=== PATIENT | female | born 2000 | race Caucasian/White ===

== ENCOUNTER 2022-02-18 11:34 | Inpatient (IN) | payer OTHER, SELFPAY ==
--- NOTE | ~2022-02-18 | CT_ITS ---
EXAMINATION: CT ABDOMEN AND PELVIS WITHOUT CONTRAST CLINICAL INFORMATION: Right lower quadrant pain COMPARISON: None TECHNIQUE: Multidetector volumetric imaging was performed from the superior aspect of the liver through the pubic symphysis. Sagittal and coronal reformatted images were obtained on the technologist's workstation. This CT examination was performed using dose optimization techniques as appropriate, variously including the following: *Automated exposure control *Adjustment of mA and/or kV according to patient size (this includes techniques or standardized protocols for targeted exams where dose is matched to indication/reason for exam; i.e. extremities or head) *Use of iterative reconstruction technique DLP: 1224 mGy-cm FINDINGS: LUNG BASES: The visualized lung bases are unremarkable. LIVER, GALLBLADDER, AND BILIARY TREE: The liver is normal in size, shape, and attenuation. No focal hepatic lesion or biliary ductal dilatation is present. The gallbladder is unremarkable with no evidence of radiopaque gallstones, gallbladder wall thickening, or obvious pericholecystic inflammatory changes. PANCREAS: Unremarkable. SPLEEN: Unremarkable. ADRENAL GLANDS: Unremarkable. KIDNEYS AND URETERS: The kidneys are normal in size, shape, and attenuation. No hydronephrosis, hydroureter, or calculi seen. No perinephric stranding. BLADDER: Incompletely distended and grossly unremarkable. GASTROINTESTINAL TRACT: The appendix is dilated up to 1.1 cm in maximal diameter and there is mild periappendiceal inflammatory fat stranding highly suspicious for acute appendicitis. No extraluminal gas to suggest perforation. No periappendiceal abscess. Finding is seen best on coronal image 51. No dilated bowel loops or bowel wall thickening. No ascites or free air. ABDOMINAL WALL: No significant hernia is appreciated. LYMPH NODES: No lymphadenopathy by size criteria. VASCULAR: Normal caliber abdominal aorta. PELVIC VISCERA: IUD appears slightly eccentrically positioned relative to the expected course of the endometrial cavity. Correlate clinically. Gynecologic structures are otherwise grossly unremarkable. No free pelvic fluid. OSSEOUS STRUCTURES: No acute fracture or suspicious osseous lesion. CT/CT abdomen pelvis wo con IMPRESSION: 1. Dilated appendix with mild periappendiceal inflammatory fat stranding highly suspicious for acute appendicitis. No evidence of perforation or abscess. 2. Slightly eccentric positioning of the IUD relative to the expected course of the endometrial cavity. Correlate clinically with any pelvic pain. This critical result was discussed with Dr. Tyson at 10:17 PM on 02/18/2022 and it was ascertained that the content and urgency of the report was understood at the time of direct communication.
[2022-02-18 12:15] VITALS: BP 128/77; PULSE 92; RESP 19; TEMP 36.6; O2SAT 98; BMI 43.4
[2022-02-18 14:15] LABS: MANUAL DIFF FLAG NO
[2022-02-18 14:18] LABS: Appearance Urine CLEAR; Basophils Percent Auto 0.2 % (0-2); Color Urine YELLOW; Eosinophils Percent Auto 0.2 % (0-4); Glucose Urine UA NEG (NEG); Hematocrit 44.5 % (37.0-47.0); Imm Gran Abs Auto 0.07 X10*3/uL (0.00-0.03); Imm Gran Pct Auto 0.4 % (0.0-0.4); Leukocyte Esterase Urine NEG (NEG); Lymphocytes Absolute Auto 3.5 X10*3/uL (1.2-4.9); Lymphocytes Percent Auto 20.2 % (20-40); Mean Corpuscular HGB Conc 33.7 g/dl (31.0-35.0); Mean Corpuscular Hemoglobin 27.5 pg (27.0-33.0); Mean Corpuscular Volume 81.5 fL (80.0-98.0); Mean Platelet Volume 9.8 fL (9.4-12.3); Monocytes Absolute Auto 1.1 X10*3/uL (0.1-1.2); Monocytes Percent Auto 6.3 % (2-11); Neutrophils Absolute Auto 12.5 x10*3/uL (2.0-8.3); Neutrophils Percent Auto 72.7 % (45-73); Nitrite Urine NEG (NEG); Platelet Count 379 X10*3/uL (160-400); Red Blood Count 5.46 X10*6/uL (4.20-5.50); Red Cell Distribution Width 13.8 % (11.0-16.0); Specific Gravity - Urine >= 1.030 (1.005-1.025); UACC Culture Trigger NO; Urine Blood 2+ (NEG); Urine Ketones >=80 MG/DL (NEG); Urine Protein 1+ MG/DL (NEG-TRACE); White Blood Count 17.2 X10*3/uL (4.8-10.8)
[2022-02-18 14:24] LABS: Squamous Epithelial Cell Urine 2+ /LPF
[2022-02-18 14:26] LABS: Amorphous Sediment Urine 1+ /LPF; Bacteria Urine TRACE /LPF; Mucus Urine 1+ /LPF; RBC Urine 0-2 /HPF (0); WBC Urine 0-2 /HPF (0-4)
[2022-02-18 14:33] LABS: UPreg QC Valid YES; Urine Pregnancy NEGATIVE (NEGATIVE)
[2022-02-18 14:44] LABS: Alanine Aminotransferase 16 U/L (0-31); Albumin Level 4.8 g/dL (3.5-5.0); Alkaline Phosphatase 81 U/L (39-117); Anion Gap 15 (12-20); Aspartate Amino Transferase 14 U/L (5-31); Bilirubin Direct 0.3 mg/dL (0.0-0.5); Bilirubin Total 0.8 mg/dL (0.0-1.0); Blood Urea Nitrogen 8 mg/dL (9-16); Calcium 9.9 mg/dL (8.4-10.2); Carbon Dioxide 25 mmol/L (22-29); Chloride 101 mmol/L (96-108); Estimated Glomerular Filt Rate > 60; Glucose Random 96 mg/dL (60-115); Lipase 7 U/L (8-78); Sodium 137 mmol/L (135-145); Total Protein 8.6 g/dL (6.5-8.0)
[2022-02-18 20:00] VITALS: BP 122/76; PULSE 103; RESP 22; TEMP 37.2; O2SAT 97
--- NOTE | 2022-02-18 20:01 | PC.NURSE ---
crying with pain, tears. rlq pain. worse with po.
--- NOTE | 2022-02-18 20:13 | ED_ITS ---
HPI - Abdominal Pain General Chief Complaint: Abdominal Pain Stated Complaint: RUQ/RLQ Pain w/Nausea Time Seen by Provider: 02/18/22 20:07 Source: patient Mode of arrival: ambulatory Limitations: no limitations History of Present Illness HPI narrative: Patient comes to the emergency room complaining of intermittent abdominal pain for several months. However, for the last 2 days, patient has had constant right lower quadrant pain radiating towards the groin area. Patient denies dysuria or hematuria. Patient states that her last menstrual period finished yesterday. Patient has tried ibuprofen with minimal relief. Related Data Allergies Allergy/AdvReac Type Severity Reaction Status Date / Time No Known Allergies Allergy Verified 02/18/22 20:11 Review of Systems Review of Systems Constitutional : No Weight loss, No Fever, No Chills, No Night Sweats, No Fatigue, No Malaise ENT/Mouth : No Hearing loss, No Ear Pain, No Nasal Congestion, No Sinus Pain, No Hoarseness, No sore throat, No Rhinorrhea, No Swallowing Difficulty Eyes: No Eye Pain, No Swelling, No Redness, No Foreign Body, No Discharge, No Vision Changes Cardiovascular : No Chest Pain, No SOB, No Dyspnea on Exertion, No Orthopnea, No Edema, No Palpitations Respiratory : No Cough, No Sputum, No Wheezing, No Smoke Exposure, No Dyspnea Gastrointestinal : Complaining of nausea vomiting, No Diarrhea, No Constipation, complaining of intermittent right lower quadrant pain, constant now for 2 days, radiating towards the right groin area Genitourinary : no irregular bleeding, No Dysuria, No Urinary Frequency, No Hematuria, No Urinary Incontinence, No Urgency, No Flank Pain, No Urinary Flow Changes, No Hesitancy Musculoskeletal : No joint pain, No Myalgias, No Joint Swelling Skin : No Skin Lesions, No rash Neuro : No Weakness, No Numbness, No Paresthesias, No Loss of Consciousness, No Dizziness, No Headache Psych : No Anxiety/Panic, No Depression, No SI/HI/AH/VH, No Social Issues, Heme/Lymph: No Bruising, No Bleeding,No Lymphadenopathy Endocrine : No Polyuria, No Polydipsia, No Temperature Intolerance PMF Social History Social History Advance Directives: No Advance Directives Information Provided: No Physical Exam ED Vital Signs: Vital Signs - 24 hr 02/18/22 12:15 02/18/22 20:00 Temperature 98 F 99.0 F Pulse Rate 92 103 H Respiratory Rate 19 22 H Blood Pressure 128/77 122/76 Pulse Oximetry 98 97 Oxygen Delivery Method Room Air Room Air BMI result Body Mass Index 43.4 Const Other: Appearance: Alert. Oriented X3. No acute distress. well-appearing Eyes: Pupils equal, round and reactive to light. ENT: Pharynx normal. Neck: Normal inspection. Neck supple. No lymph nodes noted. No crepitus CVS: Normal heart rate and rhythm. Pulses normal. Normal S1 and S2 Respiratory: No respiratory distress. Breath sounds normal. No Wheezing. No rales Abdomen: Soft , moderate tenderness to palpation over the right lower quadrant, no guarding, no rebound, No rigidity. No distention. Skin: Skin warm and dry. Normal skin color. Normal skin turgor. Extremities: No lower extremity edema. No Lacerations. No Rash Neuro: Oriented X 3. No motor deficit. No sensory deficit. Moving all ex tremities. No slurred speech. CN 2 through 12 grossly intact Psych: calm, cooperative, normal affect Course Course Course Narrative: patient states that she has to her knowledge she does not have any ovarian cysts, has never passed kidney stones, Has never had right lower quadrant pain, states she has never had abdominal surgeries /appendectomy patient has an elevated white blood cell count, the rest of her labs are unremarkable. CT scan of the abdomen is pending. Patient is getting IV fluids, Zofran and IV Toradol sign out given to Dr. Tyson [facility] - Abdominal Pain Lab Data Result diagrams: 02/18/22 14:06 02/18/22 14:06 Labs: Lab Results 02/18/22 02/18/22 02/18/22 Range/Units 14:06 14:06 14:06 WBC 17.2 H (4.8-10.8) X10*3/uL RBC 5.46 (4.20-5.50) X10*6/uL Hgb 15.0 (12.0-16.0) g/dl Hct 44.5 (37.0-47.0) % MCV 81.5 (80.0-98.0) fL MCH 27.5 (27.0-33.0) pg MCHC 33.7 (31.0-35.0) g/dl RDW 13.8 (11.0-16.0) % Plt Count 379 (160-400) X10*3/uL MPV 9.8 (9.4-12.3) fL Immature Gran % (Auto) 0.4 (0.0-0.4) % Neut % (Auto) 72.7 (45-73) % Lymph % (Auto) 20.2 (20-40) % [place] % (Auto) 6.3 (2-11) % Eos % (Auto) 0.2 (0-4) % Baso % (Auto) 0.2 (0-2) % Lymph # (Auto) 3.5 (1.2-4.9) X10*3/uL [place] # (Auto) 1.1 (0.1-1.2) X10*3/uL Eos # (Auto) 0.0 (0.0-0.4) X10*3/uL Baso # (Auto) 0.0 (0.0-0.2) X10*3/uL Abs Immat Gran (auto) 0.07 H (0.00-0.03) X10*3/uL Absolute Neuts (auto) 12.5 H (2.0-8.3) x10*3/uL Absolute Nucleated RBC 0.000 (0.0-0.012) X10*3/uL Nucleated RBC % (auto) 0.0 (0.0-0.2) /100WBC Sodium 137 (135-145) mmol/L Potassium 4.0 (3.3-5.1) mmol/L Chloride 101 (96-108) mmol/L Carbon Dioxide 25 (22-29) mmol/L Anion Gap 15 (12-20) BUN 8 L (9-16) mg/dL Creatinine 0.72 (0.5-1.4) mg/dL Estim Creat Clear Calc 151.0 Estimated GFR > 60 Random Glucose 96 (60-115) mg/dL Calcium 9.9 (8.4-10.2) mg/dL Total Bilirubin 0.8 (0.0-1.0) mg/dL Direct Bilirubin 0.3 (0.0-0.5) mg/dL AST 14 (5-31) U/L ALT 16 (0-31) U/L Alkaline Phosphatase 81 (39-117) U/L Total Protein 8.6 H (6.5-8.0) g/dL Albumin 4.8 (3.5-5.0) g/dL Lipase 7 L (8-78) U/L Urine Color YELLOW Urine Appearance CLEAR Urine pH 6.0 (5.0-8.0) Ur Specific [place] >= 1.030 H (1.005-1.025) Urine Protein 1+ H (NEG-TRACE) MG/DL Urine Glucose (UA) NEG (NEG) MG/DL Urine Ketones >=80 (NEG) MG/DL Urine Blood 2+ H (NEG) Urine Nitrite NEG (NEG) Ur Leukocyte Esterase NEG (NEG) Urine RBC 0-2 (0) /HPF Urine WBC 0-2 (0-4) /HPF Ur Squamous Epith Cells 2+ /LPF Amorphous Sediment 1+ /LPF Urine Bacteria TRACE /LPF Urine Mucus 1+ /LPF Urine Test (NEGATIVE) 02/18/22 Range/Units 14:06 WBC (4.8-10.8) X10*3/uL RBC (4.20-5.50) X10*6/uL Hgb (12.0-16.0) g/dl Hct (37.0-47.0) % MCV (80.0-98.0) fL MCH (27.0-33.0) pg MCHC (31.0-35.0) g/dl RDW (11.0-16.0) % Plt Count (160-400) X10*3/uL MPV (9.4-12.3) fL Immature Gran % (Auto) (0.0-0.4) % Neut % (Auto) (45-73) % Lymph % (Auto) (20-40) % [place] % (Auto) (2-11) % Eos % (Auto) (0-4) % Baso % (Auto) (0-2) % Lymph # (Auto) (1.2-4.9) X10*3/uL [place] # (Auto) (0.1-1.2) X10*3/uL Eos # (Auto) (0.0-0.4) X10*3/uL Baso # (Auto) (0.0-0.2) X10*3/uL Abs Immat Gran (auto) (0.00-0.03) X10*3/uL Absolute Neuts (auto) (2.0-8.3) x10*3/uL Absolute Nucleated RBC (0.0-0.012) X10*3/uL Nucleated RBC % (auto) (0.0-0.2) /100WBC Sodium (135-145) mmol/L Potassium (3.3-5.1) mmol/L Chloride (96-108) mmol/L Carbon Dioxide (22-29) mmol/L Anion Gap (12-20) BUN (9-16) mg/dL Creatinine (0.5-1.4) mg/dL Estim Creat Clear Calc Estimated GFR Random Glucose (60-115) mg/dL Calcium (8.4-10.2) mg/dL Total Bilirubin (0.0-1.0) mg/dL Direct Bilirubin (0.0-0.5) mg/dL AST (5-31) U/L ALT (0-31) U/L Alkaline Phosphatase (39-117) U/L Total Protein (6.5-8.0) g/dL Albumin (3.5-5.0) g/dL Lipase (8-78) U/L Urine Color Urine Appearance Urine pH (5.0-8.0) Ur Specific [place] (1.005-1.025) Urine Protein (NEG-TRACE) MG/DL Urine Glucose (UA) (NEG) MG/DL Urine Ketones (NEG) MG/DL Urine Blood (NEG) Urine Nitrite (NEG) Ur Leukocyte Esterase (NEG) Urine RBC (0) /HPF Urine WBC (0-4) /HPF Ur Squamous Epith Cells /LPF Amorphous Sediment /LPF Urine Bacteria /LPF Urine Mucus /LPF Urine Test NEGATIVE (NEGATIVE) Discharge Plan Discharge Clinical Impression: Abdominal pain Patient Disposition: Still a Patient
[2022-02-18] MEDS: Ketorolac Tromethamine 30 MG/ML VIAL IVPUSH (20:44)
[2022-02-18] MEDS: ondansetron HCL 4 MG/2 ML VIAL IVPUSH (20:44)
[2022-02-18] MEDS: 0.9 % Sodium Chloride 1,000 ML 999 ML IVCONT (20:45)
[2022-02-18 22:00] VITALS: BP 115/68; PULSE 97; RESP 16; TEMP 36.7; O2SAT 98
[2022-02-18 22:56] LABS: COVID-19 Test Negative (Negative)
[2022-02-19] VITALS (18 sets, daily range): BP systolic 91–122; BP diastolic 50–76; PULSE 69–92; RESP 16–34; TEMP 36.1–36.9; O2SAT 93–99
[2022-02-19] MEDS: Piperacillin Sodium/Tazobactam 3.375 GM in 0.9 % Sodium Chloride 50 ML IV ×2 (01:36→08:26)
[2022-02-19] MEDS: Dextrose 5 % and Lactated Ring 1,000 ML 125 ML IVCONT ×4 (02:33→20:53)
[2022-02-19 04:14] LABS: MANUAL DIFF FLAG NO
[2022-02-19 04:15] LABS: Basophils Percent Auto 0.2 % (0-2); Eosinophils Absolute Auto 0.1 X10*3/uL (0.0-0.4); Eosinophils Percent Auto 1.1 % (0-4); Hemoglobin 12.6 g/dl (12.0-16.0); Imm Gran Abs Auto 0.05 X10*3/uL (0.00-0.03); Imm Gran Pct Auto 0.4 % (0.0-0.4); Lymphocytes Absolute Auto 4.3 X10*3/uL (1.2-4.9); Lymphocytes Percent Auto 33.2 % (20-40); Mean Corpuscular HGB Conc 33.2 g/dl (31.0-35.0); Mean Corpuscular Hemoglobin 26.8 pg (27.0-33.0); Mean Corpuscular Volume 80.9 fL (80.0-98.0); Mean Platelet Volume 9.8 fL (9.4-12.3); Monocytes Percent Auto 7.7 % (2-11); Neutrophils Absolute Auto 7.5 x10*3/uL (2.0-8.3); Neutrophils Percent Auto 57.4 % (45-73); Platelet Count 302 X10*3/uL (160-400); Red Cell Distribution Width 13.6 % (11.0-16.0); White Blood Count 13.1 X10*3/uL (4.8-10.8)
--- NOTE | 2022-02-19 07:32 | P.HPGS_ITS ---
History of Present Illness History of Present Illness Date of Service: 02/19/22 Chief complaint: Acute appendicitis Narrative: Melia Guy is a 21 year old female presenting with complaints of abdominal pain in the right upper quadrant. The pain has been progressive over the past 3 days and it became more severe during the night. She subsequently presented to the emergency department for further evaluation. She initially thought it was related to her IUD which was previously evaluated by her senior advisory. On examination she was noted to be tender in the right lower quadrant and laboratories revealed an elevated WBC. CT abdomen and pelvis revealed a thickened appendix with surrounding inflammation suggestive of appendicitis. There was no evidence of perforation. She was admitted to the surgical service for further management. This morning the patient feels improved with decreased abdominal pain after receiving IV Tylenol. Review of Systems Review of Systems: Yes all other systems are reviewed and are negative Constitutional: Constitutional: Reports chills, Reports fever(s), Denies headache(s), Reports poor appetite and Denies weakness ENT: Denies headache(s) Cardiovascular: Cardiovascular: Denies chest pain, Denies irregular heart rhythm, Denies palpitations and Denies dyspnea Respiratory: Respiratory: Denies cough, Denies excessive phlegm production and Denies dyspnea Gastrointestinal: Gastrointestinal: Reports abdominal pain, Denies bloating, Denies change in bowel habits, Denies constipation, Reports heartburn, Denies diarrhea, Reports nausea and Reports vomiting Genitourinary: Genitourinary: Denies urinary frequency Musculoskeletal: Musculoskeletal: Denies back pain, Denies muscle weakness and Denies numbness Integumentary/Breasts: Skin/Breast: Denies changing lesions and Denies unusual bruising Neurologic: Denies headache(s), Denies numbness, Denies paresthesias and Denies weakness Psychiatric: Psychiatric: Denies anxiety and Denies depression Endocrine: Endocrine: Denies palpitations Hematologic/Lymphatic: Hematologic/Lymphatic: Denies lymphadenopathy [facility] Social History Social History Advance Directives: No Advance Directives Information Provided: No Meds Allergies Allergy/AdvReac Type Severity Reaction Status Date / Time No Known Allergies Allergy Verified 02/18/22 20:11 Active Medications: Current Medications Hydromorphone HCl (Hydromorphone Hcl 1 Mg/Ml Syringe) 0.5 mg IVPUSH Q4H PRN; Protocol PRN Reason: Pain, Severe (Pain Scale 7-10) Dextrose/Lactated Ringer's (D5lr) 1,000 mls @ 125 mls/hr IVCONT .Q8H [facility] Last Admin: 02/19/22 02:33 Dose: 125 mls/hr Piperacillin Sod/Tazobactam (Sod 3.375 gm/ Sodium Chloride) 50 mls @ 100 mls/hr IV Q6H [facility] Acetaminophen (Ofirmev) 1,000 mg in 100 mls @ 400 mls/hr IV Q6H [facility] Ondansetron HCl (Ondansetron Hcl 4 Mg/2 Ml Vial) 4 mg IVPUSH QID PRN PRN Reason: Nausea Oxycodone HCl (Oxycodone Hcl Immed Release 5 Mg Tablet) 5 mg PO Q6H PRN PRN Reason: Pain, Severe (Pain Scale 7-10) Pharmacy Consult (Consult Rx Perform Med Rec) 1 each MISCELLANE ONCE PRN PRN Reason: Consult order Sodium Chloride (0.9 % Sodium Chloride Flush 3 Ml Syringe) 3 ml IVFLUSH QSHIFT [facility] Last Admin: 02/19/22 01:37 Dose: 3 ml Zolpidem Tartrate (Zolpidem Tartrate 5 Mg Tablet) 5 mg PO BEDTIME PRN PRN Reason: Insomnia Physical Exam Vital Signs: Vital Signs: Last Vital Signs Temp 98.1 F 02/18/22 22:00 Pulse 92 02/19/22 06:45 Resp 16 02/19/22 06:45 BP 109/66 02/19/22 06:45 Pulse Ox 98 02/19/22 06:45 O2 Del Method 02/19/22 06:45 BMI result Body Mass Index 43.4 Const: General: cooperative and no acute distress Nutritional Appearance: well nourished Orientation/consciousness: patient oriented x3 Limitations: no limitations HEENT: Head: Yes normocephalic and Yes atraumatic Ears: hearing grossly normal bilaterally Resp: Effort & Inspection: normal respiratory effort, no audible wheezes, no cough and no respiratory distress Cardio: Jugular venous distension: no JVD GI: Inspection: Yes normal to inspection Palpation (GI): Soft to palpation, Tenderness to palpation present (GI) in the RLQ and at McBurney's point, no guarding and not rigid Percussion: Yes normal to percussion Auscultation: normal bowel sounds Rectal Exam - Female: deferred Skin: Other: Warm, dry, no rash Neuro: General: patient oriented x3 Extrem: General: Yes no clubbing, cyanosis or edema Results Results Labs: Short CBC 02/18/22 02/19/22 Range/Units 14:06 04:07 WBC 17.2 H 13.1 H (4.8-10.8) X10*3/uL Hgb 15.0 12.6 (12.0-16.0) g/dl Hct 44.5 38.0 (37.0-47.0) % Plt Count 379 302 (160-400) X10*3/uL BMP 02/18/22 14:06 Sodium 137 Potassium 4.0 Chloride 101 Carbon Dioxide 25 BUN 8 L Creatinine 0.72 Calcium 9.9 Liver Function 02/18/22 Range/Units 14:06 Total Bilirubin 0.8 (0.0-1.0) mg/dL Direct Bilirubin 0.3 (0.0-0.5) mg/dL AST 14 (5-31) U/L ALT 16 (0-31) U/L Alkaline Phosphatase 81 (39-117) U/L Albumin 4.8 (3.5-5.0) g/dL Urine 02/18/22 02/18/22 Range/Units 14:06 14:06 Urine Color YELLOW Urine Appearance CLEAR Urine pH 6.0 (5.0-8.0) Ur Specific [place] >= 1.030 H (1.005-1.025) Urine Protein 1+ H (NEG-TRACE) MG/DL Urine Glucose (UA) NEG (NEG) MG/DL Urine Test NEGATIVE (NEGATIVE) Assessment and Plan (1) Acute appendicitis: Status: Acute Plan 21-year-old female patient presenting with complaints of abdominal pain in the right lower quadrant for approximately 3 days. The pain is becoming more severe and is associated with nausea and vomiting. On presentation to the emergency department she was noted to be tender in the right lower quadrant. WBC was elevated at 17. CT abdomen was consistent with acute appendicitis. This morning her pain is improved after IV Tylenol and her WBCs at 13. She was given the option of continued IV antibiotics versus laparoscopic/open appendectomy. After discussion of the procedure, risks, and alternatives, she consents to a laparoscopic or possible open appendectomy. She is been added onto the operative schedule for today. Quality Stroke Does the patient have a stroke diagnosis?: No VTE Prior VTE?: No VTE Risk Level:: Surgical - moderate VTE Device Contraindication: N/A - Device Ordered VTE Drug Contraindication: Treatment Not Indicated Procedures Date of Service Date of Service: 02/19/22
--- NOTE | 2022-02-19 08:06 | PHA.MEDREC ---
Pharmacy Consult ? Medication Reconciliation Pharmacy has completed the medication reconciliation. Patient report no medications at home. She reports that she does have an IUD. Hermila Wilkes, PharmD
[2022-02-19] MEDS: 0.9 % Sodium Chloride Flush 3 ML SYRINGE IVFLUSH (08:28)
--- NOTE | 2022-02-19 09:36 | HO.ANESPROP2 ---
[facility] Active Problems Active Problems: All Active Problems (Updated 02/18/22 @ 22:32 by Alexandra Tyson MD) Abdominal pain (Acute) Acute appendicitis (Acute) Past Medical History Functional capacity: independent ambulation Patient : No Family History Family history of problems with anesthesia: No Surgical History History of Problems with Anesthesia: No Social History Social History Patient Tobacco Use Status: Never used Tobacco Second Hand Smoke Exposure: No Meds Allergies Allergy/AdvReac Type Severity Reaction Status Date / Time No Known Allergies Allergy Verified 02/18/22 20:11 Active Medications: Current Medications Hydromorphone HCl (Hydromorphone Hcl 1 Mg/Ml Syringe) 0.5 mg IVPUSH Q4H PRN; Protocol PRN Reason: Pain, Severe (Pain Scale 7-10) Dextrose/Lactated Ringer's (D5lr) 1,000 mls @ 125 mls/hr IVCONT .Q8H [facility] Last Admin: 02/19/22 08:27 Dose: 125 mls/hr Piperacillin Sod/Tazobactam (Sod 3.375 gm/ Sodium Chloride) 50 mls @ 100 mls/hr IV Q6H [facility] Last Admin: 02/19/22 08:26 Dose: 100 mls/hr Acetaminophen (Ofirmev) 1,000 mg in 100 mls @ 400 mls/hr IV Q6H [facility] Last Admin: 02/19/22 09:05 Dose: 400 mls/hr Ondansetron HCl (Ondansetron Hcl 4 Mg/2 Ml Vial) 4 mg IVPUSH QID PRN PRN Reason: Nausea Oxycodone HCl (Oxycodone Hcl Immed Release 5 Mg Tablet) 5 mg PO Q6H PRN PRN Reason: Pain, Severe (Pain Scale 7-10) Pharmacy Consult (Consult Rx Perform Med Rec) 1 each MISCELLANE ONCE PRN PRN Reason: Consult order Sodium Chloride (0.9 % Sodium Chloride Flush 3 Ml Syringe) 3 ml IVFLUSH QSHIFT [facility] Last Admin: 02/19/22 08:28 Dose: 3 ml Zolpidem Tartrate (Zolpidem Tartrate 5 Mg Tablet) 5 mg PO BEDTIME PRN PRN Reason: Insomnia Home Medications Medication Instructions Recorded Confirmed Last Taken Type No Known Home Meds 02/19/22 02/19/22 Unknown History Exam Exam Date and Time: February 19, 2022 0936 Height,Weight and Vital Signs: Height 5 ft 4 in Weight 114.759 kg Last Vital Signs Temp 97.4 F 02/19/22 09:16 Pulse 85 02/19/22 09:16 Resp 16 02/19/22 09:16 BP 110/74 02/19/22 09:16 Pulse Ox 98 02/19/22 09:16 O2 Del Method 02/19/22 09:16 Pertinent Lab Results Pertinent Lab Results: Laboratory Tests 02/18/22 02/18/22 02/18/22 14:06 14:06 14:06 WBC 17.2 H RBC 5.46 Hgb 15.0 Hct 44.5 MCV 81.5 MCH 27.5 MCHC 33.7 RDW 13.8 Plt Count 379 MPV 9.8 Immature Gran % (Auto) 0.4 Neut % (Auto) 72.7 Lymph % (Auto) 20.2 [place] % (Auto) 6.3 Eos % (Auto) 0.2 Baso % (Auto) 0.2 Lymph # (Auto) 3.5 [place] # (Auto) 1.1 Eos # (Auto) 0.0 Baso # (Auto) 0.0 Abs Immat Gran (auto) 0.07 H Absolute Neuts (auto) 12.5 H Absolute Nucleated RBC 0.000 Nucleated RBC % (auto) 0.0 Sodium 137 Potassium 4.0 Chloride 101 Carbon Dioxide 25 Anion Gap 15 BUN 8 L Creatinine 0.72 Estim Creat Clear Calc 151.0 Estimated GFR > 60 Random Glucose 96 Calcium 9.9 Total Bilirubin 0.8 Direct Bilirubin 0.3 AST 14 ALT 16 Alkaline Phosphatase 81 Total Protein 8.6 H Albumin 4.8 Lipase 7 L Urine Color YELLOW Urine Appearance CLEAR Urine pH 6.0 Ur Specific [place] >= 1.030 H Urine Protein 1+ H Urine Glucose (UA) NEG Urine Ketones >=80 Urine Blood 2+ H Urine Nitrite NEG Ur Leukocyte Esterase NEG Urine RBC 0-2 Urine WBC 0-2 Ur Squamous Epith Cells 2+ Amorphous Sediment 1+ Urine Bacteria TRACE Urine Mucus 1+ Urine Test COVID-19 ([facility]) COVID-19 Clin Com 02/18/22 02/18/22 02/19/22 14:06 22:29 04:07 WBC 13.1 H RBC 4.70 Hgb 12.6 Hct 38.0 MCV 80.9 MCH 26.8 L MCHC 33.2 RDW 13.6 Plt Count 302 MPV 9.8 Immature Gran % (Auto) 0.4 Neut % (Auto) 57.4 Lymph % (Auto) 33.2 [place] % (Auto) 7.7 Eos % (Auto) 1.1 Baso % (Auto) 0.2 Lymph # (Auto) 4.3 [place] # (Auto) 1.0 Eos # (Auto) 0.1 Baso # (Auto) 0.0 Abs Immat Gran (auto) 0.05 H Absolute Neuts (auto) 7.5 Absolute Nucleated RBC 0.000 Nucleated RBC % (auto) 0.0 Sodium Potassium Chloride Carbon Dioxide Anion Gap BUN Creatinine Estim Creat Clear Calc Estimated GFR Random Glucose Calcium Total Bilirubin Direct Bilirubin AST ALT Alkaline Phosphatase Total Protein Albumin Lipase Urine Color Urine Appearance Urine pH Ur Specific [place] Urine Protein Urine Glucose (UA) Urine Ketones Urine Blood Urine Nitrite Ur Leukocyte Esterase Urine RBC Urine WBC Ur Squamous Epith Cells Amorphous Sediment Urine Bacteria Urine Mucus Urine Test NEGATIVE COVID-19 ([facility]) Negative COVID-19 Clin Com See Note Airway Mallampati Class: II TM Dist: >3cm Neck ROM: Full Heart: RRR Lungs: CTA Assessment and Plan Final Anesthetic Review Family History of Problems with Anesthesia: No History of Problems with Anesthesia: No NPO: Yes ASA Class: III and Emergency Final Preanesthetic Review: No Changes in Pt Med Stat, Meds/Allgs Chart Reviewed, Consent Obtained/Reviewed and Anes Risks/Benef Reviewed Patient Risk: Intermediate Procedure Risk: Low Anesthetic Plan Anesthetic Plan: GA Disposition: Standard PACU
--- NOTE | 2022-02-19 10:17 | MHC.CM.PN ---
Attempted to meet with patient in regards to discharge planning. Patient was transferred to OR. Will attempt to meet again. Continue to monitor for d/c needs.
--- NOTE | 2022-02-19 11:58 | W.PM.OPN ---
Operative Note Operative Note Date of Service: 02/19/22 Narrative: Preoperative diagnosis: Acute appendicitis Postoperative diagnosis: Same Procedure: Laparoscopic appendectomy Surgeon: John Pastrana MD Electromagnet Crane Operator:no physician Anesthesia: General endotracheal Indications for procedure: 21-year-old female patient presenting with complaints of abdominal pain in the right lower quadrant of 3 days duration increasing in severity. Patient was found to have an elevated WBC of [address] findings consistent with acute appendicitis. Operative findings: Mildly inflamed appendix non perforated. Specimen: Appendix Estimated blood loss: less than 1 mL Complications: non Procedure details: Patient was brought to the OR and placed in a supine position. After administering general anesthesia the patient's abdomen was prepped with ChloraPrep and draped in a sterile fashion. A surgical time-out was called and consent confirmed. Patient received preoperative antibiotics and Venodyne boots were in place. Local anesthesia consisting of 0.5% Sensorcaine with epinephrine was infiltrated in periumbilical region. A 5 mm incision was made below the umbilicus and carried down through subcutaneous tissue. A Veress needle was then inserted while elevating abdominal cavity with towel clips. After a positive drop test the abdomen was insufflated to a pressure of 15 mm of mercury. The Veress needle was removed and a 5 mm trocar inserted. The camera was then inserted in the abdomen explored. A 2nd 5 mm trocars placed in the lower midline. A 12 mm trocar was then placed in the left lower quadrant. The patient was then placed in a Trendelenburg position and rotated to the left. The appendix was identified in the right lower quadrant and brought up using blunt dissecting clamps. The mesentery of the appendix was then divided using the LigaSure. The appendiceal artery was cauterized and divided using the LigaSure. Dissection was continued down to the base of the cecum. An Endo-GIULIA stapler with a purple reload was then used to divide the appendix at the base with the cecum. The appendix was then placed in Endo-Catch bag and brought out through the left lower quadrant incision. The abdomen was then irrigated with saline solution and suctioned dry. Wounds were checked for hemostasis. CO2 was then evacuated from the abdominal cavity and all trocars removed. Fascia was closed in the left lower quadrant incision using a [id number] 0 Polysorb suture. Skin was closed at all incisions using a subcuticular 4-0 Polysorb suture. Steri-Strips 2 x 2 gauze and Tegaderm were then applied. The patient tolerated the procedure well. Sponge, instrument, needle counts reported as correct. The patient was transferred to PACU in stable condition.
--- NOTE | 2022-02-19 14:23 | HO.POSTANES ---
Post Anesthesia Evaluation Post Anesthesia Evaluation Vital Signs: Vital Signs Temp Pulse Resp BP Pulse Ox O2 Del Method O2 Flow Rate 02/19/22 13:09 71 34 H 115/70 95 Nasal Cannula 2 02/19/22 12:54 97 F 70 32 H 115/70 93 Room Air 02/19/22 12:39 73 24 H 122/72 96 Room Air 02/19/22 12:24 88 16 108/60 97 Room Air 02/19/22 12:19 86 16 97/55 L 95 Room Air 02/19/22 12:14 78 16 115/50 L 95 Room Air 02/19/22 12:09 97.8 F 88 16 106/55 L 95 Room Air 02/19/22 09:16 97.4 F 85 16 110/74 98 Room Air 02/19/22 08:29 98.5 F 75 18 114/60 98 Room Air 02/19/22 06:45 92 16 109/66 98 Room Air 02/19/22 02:33 77 16 91/55 L 97 Room Air Anesthesia: General Endotracheal-GETA Mental Status: Awake Pain Control: Satisfactory Nausea/Vomiting: None Hydration: Adequate Anesthesia-Related Issues: No Anes. Related Issues
[2022-02-19] MEDS: oxyCODONE HCl Immed Release 5 MG TABLET PO (18:16)
[2022-02-19] MEDS: ondansetron HCL 4 MG/2 ML VIAL IVPUSH (18:16)
[2022-02-20] MEDS: Dextrose 5 % and Lactated Ring 1,000 ML 125 ML IVCONT (05:54)
[2022-02-20 07:08] VITALS: BP 92/57; PULSE 64; RESP 16; TEMP 35.7; O2SAT 98
--- NOTE | 2022-02-20 07:39 | P.CDIC_ITS ---
CDI Concurrent Query Documentation Clarification: PHYSICIAN'S DOCUMENTATION REQUEST Date of Query: 02/20/22 0739 Patient Name: Melia Guy Admit Date: 02/18/22 Dear Doctor, A review of the medical record indicates additional documentation may be needed. Please review below and update the documentation accordingly. Clinical Indicators: Risk Factors/Clinical Indicators/Treatments Body mass index: 43.4 5' 4 in height. If possible, please provide an associated diagnosis related to the abnormal BMI, such as: For a BMI >= 40: * Overweight * Obesity * Due to excess calories * Drug induced * Due to other cause * Severe or Morbid Obesity Or: * BMI is not significant * Other (please specify) * Unable to determine Use of terms such as suspected, likely, concern for, or probable (associated with a specific diagnosis that is being evaluated, monitored, or treated as if it exists) are acceptable and can be coded in the inpatient setting, when documented at the time of discharge. Thank you, Nusrat Braxton [facility], CDIS Extension: [phone] Please use your independent medical judgment in providing your response. THIS QUERY IS PART OF THE PERMANENT MEDICAL RECORD Provider Response: Morbid Obesity
--- NOTE | 2022-02-20 08:06 | P.DS_ITS ---
DS: Providers Provider Date of Service: 02/20/22 Date of admission: 02/18/22 22:36 Date of discharge: 02/20/22 Primary care physician: Fatimah Grover MD Admitting clinician: John Pastrana Discharging clinician: John Pastrana DS: Diagnosis Discharge Diagnosis (1) Acute appendicitis: Status: Acute DS: Summary Hospital Course Hospital Course: Melia Guy is a 21 year old female presenting with complaints of abdominal pain in the right upper quadrant. The pain has been progressive over the past 3 days and it became more severe during the night. She subsequently presented to the emergency department for further evaluation. 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 On examination she was noted to be tender in the right lower quadrant and laboratories revealed an elevated WBC. CT abdomen and pelvis revealed a thickened appendix with surrounding inflammation suggestive of appendicitis. There was no evidence of perforation. She was admitted to the surgical service for further management. Patient was given the option of either continued IV antibiotics versus laparoscopic appendectomy. After discussion of the procedure, risks, and alternatives, she consented to a laparoscopic appendectomy. This was performed on 02/19/2022. Operative findings were consistent with early acute appendicitis without perforation. She underwent an uneventful laparoscopic appendectomy. Postoperatively she was started on a regular diet and tolerated this well without vomiting. On the 1st postoperative day, she reports her pain is much im proved compared to on admission. She denies fever or chills. On examination her wounds are clean and intact without redness or discharge. The patient is to be discharged to home on 02/20/2022. Discharge instructions were to avoid lifting greater than 10 lb for 2 weeks. 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 She will be followed up in the office in approximately 1 week for wound examination. She may resume a regular diet. She was instructed to call the office for follow-up appointment she should also call p.r.n. for fever, chills, nausea, vomiting, increased abdominal pain or other concerns regarding the surgery. She expressed understanding and agrees with the plan. Status at Discharge Functional status at discharge: independent ambulation Overall status at discharge: patient is back to baseline Time Spent with Patient Time attestation: Total time spent providing and/or coordinating discharge services: Discharge coordination time: Less than 30 minutes Quality: Safe Use of Opioids Does Pt have an Active Cancer Diagnosis on the Problem List?: No Quality: Stroke Does the patient have a stroke diagnosis?: No Physical Exam Vital Signs: Vital Signs: Last Vital Signs Temp 96.3 F L 02/20/22 07:08 Pulse 64 02/20/22 07:08 Resp 16 02/20/22 07:08 BP 92/57 L 02/20/22 07:08 Pulse Ox 98 02/20/22 07:08 O2 Del Method 02/20/22 07:08 O2 Flow Rate 2 02/19/22 15:24 BMI result Body Mass Index 43.4 Const: General: healthy appearing and no acute distress Nutritional Appearance: obese Orientation/consciousness: patient oriented x3 Limitations: no limitations Resp: Other: Breathing comfortably on room air, no respiratory distress GI: Other: Soft, nondistended, nontender with normal bowel sounds. Incisions clean, dry, and intact. Neuro: General: patient oriented x3 Extrem: Other: No pedal edema. DS: Data Data Completed and Pending Pending studies at discharge: Pending at discharge 02/19/22 11:50 Surgical [PTH] Routine Discharge Plan Discharge Patient Disposition: Home, Self-Care Discharge Diagnosis: Acute appendicitis Referrals: John Pastrana MD [Physician] - 1 Week Fatimah Grover MD [Primary Care Provider] - 1 Week Discharge Medications: New oxycodone 5 mg tablet 5 mg PO Q6H PRN (Reason: pain (scale score 7-10)) Qty: 10 0RF Rx Instructions: Partial Fill upon patient request. Discharge Orders: Discharge Order (Routine); Ordered 02/20/22 Ordered By: John Pastrana Diet: Advance to usual diet Activity on Discharge: No heavy lifting Stand Alone Forms: Patient Portal Discharge page, Work/School Release Activity Restrictions/Additional Instructions: No lifting > 10 pounds for 2 weeks No driving for one week Ice to the incision x 24 hours Remove dressing in 3 days Follow up in office in one week. Care Plan Goals: Return to normal activity and diet in 2 weeks Health Concerns: Acute abdominal pain right lower quadrant Plan of Treatment: Laparoscopic appendectomy on 02/19/2022 Assessment: Acute non perforated appendicitis
--- NOTE | 2022-02-20 08:46 | HO.POSTANES ---
Post Anesthesia Evaluation Post Anesthesia Evaluation Vital Signs: Vital Signs Temp Pulse Resp BP Pulse Ox O2 Del Method 02/20/22 07:08 96.3 F L 64 16 92/57 L 98 Room Air 02/19/22 23:44 97.8 F 69 24 H 101/58 L 96 Room Air Anesthesia: General Mental Status: Awake Pain Control: Satisfactory Nausea/Vomiting: None Hydration: Adequate Anesthesia-Related Issues: No Anes. Related Issues
--- NOTE | 2022-02-20 09:15 | MHC.CM.PN ---
EMR REVIEWED, CM MET W/PT WHO REPORTS SHE LIVES W/HER MOM, IS INDEP W/ALL CARE, DENIES USE OF DME AND HOME SERVICES, PT VERIFIES [employer] ONLY COVID VACCINE, REPORTS PT IS NO LONGER SEEING AMARJIT [facility]BE FOR PCP AND HAS AN APPT W/[facility] IN [place] ON 03/07 HOWEVER DOES NOT RECALL NAME OF PROVIDER, PT COMPLETED A HCP W/CM NAMING HER MOTHER WES LESLIE [phone] HER [facility] W/NO ALTERNATE CHOSEN, PT PROVIDED W/EDUCATION, ORIGINAL AND 2 COPIES, COPY UPLOADED TO [facility] AND PLACED IN CHART. D/C PLAN: HOME TODAY W/FAMILY FOR TRANSPORT
== END 2022-02-20 12:04 | disposition home or self-care (01) | DRG 234 ==
LOC: HO.ED 22:35 → HO.EDOVER 22:44 → HO.S3 02-19 15:26
PROVIDERS: Emergency Medicine; Admitting Provider Surgery; Emergency Provider Emergency Medicine; PCP Internal Medicine; Visit Provider Surgery
PROC: 0DTJ4ZZ Resection of Appendix, Percutaneous Endoscopic Approach (ICD-10-PCS; CPT 44970; principal; 2022-02-19 14:20)
DX: K35.80 Unspecified acute appendicitis (principal); E66.01 Morbid (severe) obesity due to excess calories; Z20.822 Contact with and (suspected) exposure to COVID-19; Z68.41 Body mass index [BMI] 40.0-44.9, adult
CPT/HCPCS: 44970; 36415; 74176; 80048; 80076; 81001; 81025; 83690; 85025; 87635; 88304; 96361; 96374; 96375; 99285; J0131; J1100; J1885; J2250; J2405; J2543; J2550; J2795; J3010

== ENCOUNTER 2022-02-27 15:46 | Outpatient (REF) | payer OTHER, SELFPAY ==
[2022-02-27 16:20] LABS: Leukocytes Stool Qualitative NEGATIVE (NEGATIVE)
[2022-02-27 17:08] LABS: CDiff Gene PCR NEGATIVE (Negative)
== END 2022-02-27 15:47 | disposition home or self-care (01) ==
LOC: HO.LNP 15:46
PROVIDERS: Visit Provider Surgery
DX: R10.9 Unspecified abdominal pain (principal); R19.7 Diarrhea, unspecified
CPT/HCPCS: 87177; 87209; 87493; 89055